=== PATIENT | male | born 2000 | race Caucasian/White ===

== ENCOUNTER 2021-02-08 16:13 | Emergency (ER) | payer SELFPAY ==
[~2021-02-08] VITALS: Ht 193 cm; Wt 93.0 kg
[2021-02-08] MEDS ORDERED: ACETAMINOPHEN 325MG TABLET PO ONE (16:45)
[2021-02-08] MEDS ORDERED: TETANUS, DIPHTHERIA, PERTUSSIS VAC/PF 0.5ML (>10YR OLD) IM ONE (16:45)
[2021-02-08] MEDS ORDERED: LIDOCAINE HCL/EPINEPHRINE 1%-EPI 1:100,000 20 ML VIAL INFIL ONE (16:45)
[2021-02-08] MEDS ORDERED: BACITRACIN ZINC OINT UDPKT TOP ONE (16:45)
[2021-02-08] MEDS ORDERED: TOPUD MT (17:28)
[2021-02-08 17:40] VITALS: BP 118/68
== END 2021-02-08 17:41 | disposition home or self-care (01) ==
LOC: ER 16:13
DX: S21.112A Laceration without foreign body of left front wall of thorax without penetration into thoracic cavity, initial encounter (principal); W45.0XXA Nail entering through skin, initial encounter; Y93.39 Activity, other involving climbing, rappelling and jumping off; Y92.89 Other specified places as the place of occurrence of the external cause; Y99.0 Civilian activity done for income or pay
CPT/HCPCS: 71045; 90471; 90715; 99283; J3490